=== PATIENT | female | born 1980 | race Caucasian/White ===

== ENCOUNTER 2018-03-13 10:22 | Inpatient (IN) | payer OTHER ==
[~2018-03-13] VITALS: Ht 160 cm; Wt 80.5 kg
[2018-03-13] MEDS: OXYTOCIN 30U/ 0.9% NaCL 500ML 500 ML IV SCH ×2 (10:51→20:51)
[2018-03-13] MEDS ORDERED: LACTATED RINGERS 1,000 ML IV SCH ×2 (10:51→11:23)
[2018-03-13] MEDS ORDERED: NEWBORN KIT ONE (10:55)
[2018-03-13] MEDS ORDERED: LACTATED RINGERS 1,000 ML IVBOLUS ONE (11:00)
[2018-03-13] MEDS ORDERED: SODIUM CITRATE/CITRIC ACID 30 ML UDC PO ONE (11:00)
[2018-03-13] MEDS ORDERED: METOCLOPRAMIDE 5 MG/ML, 2ML IV ONE (11:00)
[2018-03-13] MEDS ORDERED: BUPIVACAINE/PF 0.5% ONE (11:04)
[2018-03-13] MEDS ORDERED: LIDOCAINE 2% 100MG/5ML SYRINGE ONE (11:04)
[2018-03-13] MEDS ORDERED: OXYTOCIN 10 UNITS/ML, 1ML ONE (11:04)
[2018-03-13] MEDS ORDERED: CEFAZOLIN 1,000 MG ONE (11:04)
[2018-03-13] MEDS ORDERED: FENTANYL PF 100 MCG/2ML ONE (11:04)
[2018-03-13] MEDS ORDERED: KETOROLAC 30 MG/1 ML ONE (11:04)
[2018-03-13 11:18] LABS: BASOPHILS # (AUTO) 0.03 x10^3/uL (0-0.1); BASOPHILS % (AUTO) 0 % (0-1); EOSINOPHILS # (AUTO) 0.01 x10^3/uL (0-0.4); EOSINOPHILS % (AUTO) 0 % (1-7); LYMPHOCYTES # (AUTO) 1.38 x10^3/uL (1-3.4); LYMPHOCYTES % (AUTO) 12 % (22-44); MD NO; MEAN CORPUSCULAR HEMOGLOBIN 30.1 pg (27.0-34.8); MEAN CORPUSCULAR VOLUME 91.2 fL (80-100); MEAN PLATELET VOLUME 8.9 fL (7.4-10.4); MONOCYTES # (AUTO) 0.75 x10^3/uL (0.2-0.8); MONOCYTES % (AUTO) 7 % (2-9); NEUTROPHILS # (AUTO) 9.48 x10^3/uL (1.8-6.8); NEUTROPHILS % (AUTO) 81 % (42-75); PLATELET COUNT 230 x10^3/uL (130-400); RED BLOOD COUNT 4.08 x10^6/uL (3.82-5.3); RED CELL DISTRIBUTION WIDTH 13.4 % (9.6-15.2)
[2018-03-13] MEDS: LACTATED RINGERS 1,000 ML IV SCH ×2 (11:23→19:23)
[2018-03-13] MEDS ORDERED: OXYTOCIN 30U/ 0.9% NaCL 500ML 500 ML IV SCH (11:23)
[2018-03-13] MEDS: PLEASE ENTER ALLERGIES MC SCH ×2 (11:30→19:30)
[2018-03-13] MEDS ORDERED: METOCLOPRAMIDE 5 MG/ML, 2ML IV PRN (11:30)
[2018-03-13] MEDS ORDERED: CARBOPROST TROMETHAMINE 250 MCG/ML, 1ML IM PRN (11:30)
[2018-03-13] MEDS ORDERED: ONDANSETRON 2MG/ML, 2ML IV PRN (11:30)
[2018-03-13] MEDS ORDERED: MEPERIDINE/PF 50 MG/ML IVPush PRN (11:30)
[2018-03-13] MEDS ORDERED: MEASLES,MUMPS&RUBELLA VACC/PF 0.5 ML SQ-VACC PRN (11:30)
[2018-03-13] MEDS ORDERED: GLYCERIN ADULT SUPP PR PRN (11:30)
[2018-03-13] MEDS ORDERED: METHYLERGONOVINE 0.2 MG/ML IM PRN (11:30)
[2018-03-13] MEDS: PLEASE ENTER HEIGHT AND WEIGHT MC SCH ×2 (11:30→19:30)
[2018-03-13] MEDS ORDERED: ACETAMINOPHEN 325 MG TABLET PO PRN ×3 (11:30)
[2018-03-13] MEDS ORDERED: SIMETHICONE 80 MG CHEW TAB PO PRN (11:30)
[2018-03-13] MEDS ORDERED: MISOPROSTOL 200 MCG TABLET PR PRN (11:30)
[2018-03-13] MEDS ORDERED: MEPERIDINE/PF 100 MG/ML IVPush PRN (11:30)
[2018-03-13] MEDS ORDERED: CALCIUM CARBONATE 500 MG TAB.CHEW PO PRN (11:30)
[2018-03-13] MEDS ORDERED: BISACODYL 10 MG SUPP PR PRN (11:30)
[2018-03-13] MEDS ORDERED: EPHEDRINE 50 MG/ML, 1ML ONE (11:45)
[2018-03-13] MEDS: KETOROLAC 30 MG/1 ML IV SCH ×3 (12:00→23:52)
[2018-03-13 12:30] VITALS: BP 139/85
[2018-03-13] MEDS ORDERED: OXYTOCIN 30U/ 0.9% NaCL 500ML 500 ML ONE (13:13)
[2018-03-13] MEDS ORDERED: PREN1TAB10 PO (14:21)
[2018-03-13 15:10] VITALS: BP 119/76
[2018-03-13] MEDS: OXYcodone/APAP 5/325MG TABLET PO PRN ×2 (17:21→21:28)
[2018-03-13 18:12] LABS: MICROSCOPIC INDICATED
[2018-03-13 18:13] LABS: CULTURE INDICATED? YES
[2018-03-13 20:00] VITALS: BP 116/74
[2018-03-14 00:31] VITALS: BP 122/83
[2018-03-14] MEDS: OXYcodone/APAP 5/325MG TABLET PO PRN ×4 (03:29→18:08)
[2018-03-14 04:40] VITALS: BP 118/76
[2018-03-14] MEDS: KETOROLAC 30 MG/1 ML IV SCH ×3 (06:39→18:00)
[2018-03-14 07:40] VITALS: BP 114/80
[2018-03-14] MEDS: DOCUSATE 100 MG CAPSULE PO PRN (07:59)
[2018-03-14] MEDS: PRENATAL VIT/IRON/FA 1 EACH TABLET PO SCH (07:59)
[2018-03-14] MEDS: NITROFURANTOIN (MACROBID) 100 MG CAPSULE PO SCH ×2 (10:01→21:44)
[2018-03-14 10:52] LABS: BASOPHILS # (AUTO) 0.02 x10^3/uL (0-0.1); BASOPHILS % (AUTO) 0 % (0-1); EOSINOPHILS # (AUTO) 0.02 x10^3/uL (0-0.4); EOSINOPHILS % (AUTO) 0 % (1-7); LYMPHOCYTES # (AUTO) 1.28 x10^3/uL (1-3.4); LYMPHOCYTES % (AUTO) 12 % (22-44); MD NO; MEAN CORPUSCULAR HEMOGLOBIN 30.9 pg (27.0-34.8); MEAN CORPUSCULAR HGB CONC 33.8 g/dL (32.4-35.8); MEAN CORPUSCULAR VOLUME 91.3 fL (80-100); MEAN PLATELET VOLUME 8.6 fL (7.4-10.4); MONOCYTES # (AUTO) 0.68 x10^3/uL (0.2-0.8); MONOCYTES % (AUTO) 6 % (2-9); NEUTROPHILS # (AUTO) 8.95 x10^3/uL (1.8-6.8); NEUTROPHILS % (AUTO) 82 % (42-75); PLATELET COUNT 210 x10^3/uL (130-400); RED BLOOD COUNT 3.44 x10^6/uL (3.82-5.3); RED CELL DISTRIBUTION WIDTH 13.4 % (9.6-15.2)
[2018-03-14 12:20] VITALS: BP 109/71
[2018-03-14] MEDS ORDERED: IBUPROFEN 600 MG TABLET ONE (18:06)
[2018-03-14] MEDS: IBUPROFEN 600 MG TABLET PO PRN (18:08)
[2018-03-14 20:40] VITALS: BP 125/86
[2018-03-15] MEDS ORDERED: IBUPROFEN 600 MG TABLET ONE (00:57)
[2018-03-15] MEDS: IBUPROFEN 600 MG TABLET PO PRN ×3 (01:01→15:28)
[2018-03-15] MEDS: OXYcodone/APAP 5/325MG TABLET PO PRN ×5 (01:01→20:00)
[2018-03-15] MEDS: DOCUSATE 100 MG CAPSULE PO PRN ×2 (01:01→09:09)
[2018-03-15 08:00] VITALS: BP 124/77
[2018-03-15] MEDS: NITROFURANTOIN (MACROBID) 100 MG CAPSULE PO SCH ×2 (09:00→20:00)
[2018-03-15] MEDS: PRENATAL VIT/IRON/FA 1 EACH TABLET PO SCH (09:00)
[2018-03-15 20:30] VITALS: BP_SYST 138; BP_SYST 147; BP_DIAS 95; BP_DIAS 99
[2018-03-15 21:27] VITALS: BP 128/85
[2018-03-16] MEDS: OXYcodone/APAP 5/325MG TABLET PO PRN ×6 (00:27→23:43)
[2018-03-16] MEDS: IBUPROFEN 600 MG TABLET PO PRN ×4 (00:27→23:40)
[2018-03-16 07:45] VITALS: BP 129/81
[2018-03-16] MEDS: DOCUSATE 100 MG CAPSULE PO PRN ×2 (08:16→19:41)
[2018-03-16] MEDS: NITROFURANTOIN (MACROBID) 100 MG CAPSULE PO SCH ×2 (08:16→19:41)
[2018-03-16] MEDS: PRENATAL VIT/IRON/FA 1 EACH TABLET PO SCH (08:16)
[2018-03-16 19:40] VITALS: BP 132/80
[2018-03-17] MEDS: OXYcodone/APAP 5/325MG TABLET PO PRN ×2 (06:02→10:45)
[2018-03-17] MEDS: IBUPROFEN 600 MG TABLET PO PRN (06:02)
[2018-03-17 07:50] VITALS: BP 123/83
[2018-03-17] MEDS ORDERED: IBUP-1222 PO (07:55)
[2018-03-17] MEDS ORDERED: DOCU-131 PO (07:56)
[2018-03-17] MEDS ORDERED: OXYC-302 PO (08:11)
[2018-03-17] MEDS: NITROFURANTOIN (MACROBID) 100 MG CAPSULE PO SCH (08:58)
[2018-03-17] MEDS: DOCUSATE 100 MG CAPSULE PO PRN (08:58)
[2018-03-17] MEDS: PRENATAL VIT/IRON/FA 1 EACH TABLET PO SCH (08:58)
== END 2018-03-17 12:15 | disposition home or self-care (01) | DRG 765 ==
LOC: LDOP 10:22 → LDIP 10:45 → 2NW 14:59
PROVIDERS: ADMIT Obstetrics & Gynecology; ATTEND Obstetrics & Gynecology
PROC: 10D00Z1 Extraction of Products of Conception, Low, Open Approach (ICD-10-PCS; principal; 2018-03-13)
DX: O32.1XX0 Maternal care for breech presentation, not applicable or unspecified (principal); N30.01 Acute cystitis with hematuria; O98.92 Unspecified maternal infectious and parasitic disease complicating childbirth; Z37.0 Single live birth; O99.824 Streptococcus B carrier state complicating childbirth; Z3A.38 38 weeks gestation of pregnancy; Z23 Encounter for immunization
CPT/HCPCS: 36415; 81001; 85025; 86850; 86900; 87086; J0690; J1885; J3010; J3490; J2590; J7120